=== PATIENT | male | born 1995 | race Caucasian/White ===

== ENCOUNTER 2024-06-01 10:46 | Emergency (ER) | payer OTHER ==
--- NOTE | 2024-06-01 11:06 | ERPHSYRPT ---
- History of Present Illness Source: patient Exam Limitations: no limitations Physician History: Patient had a scrape on his finger. It was scabbed over. It was quite a few days old. 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 I guess low blood got splashed on his area. He is just here for testing. The incident happened over 6 hours ago so he is out of the window for prophylactic medicines.He has no symptoms. That is his only complaint. Allergies/Adverse Reactions: No Known Drug Allergies Allergy (Verified 06/01/24 11:05) Home Medications: Buspirone HCl 5 mg [Buspar 5 mg] 5 mg PO TID PRN 06/01/24 [History] Escitalopram Oxalate [Lexapro] 20 mg PO DAILY 06/01/24 [History] - Review of Systems Constitutional: No Symptoms Musculoskeletal: No Symptoms Skin: No Symptoms All Other Systems: Reviewed and Negative - Physical Exam General Appearance: no apparent distress Eye Exam: PERRL/EOMI Respiratory Exam: normal breath sounds, No respiratory distress Cardiovascular Exam: regular rate/rhythm Neurologic Exam: alert, oriented x 3 - Course Nursing assessment & vital signs reviewed: Yes Ordered Tests: Active Orders 24 hr Category Date Time Status Wound Care STAT Care 06/01/24 11:00 Active - Progress Progress Note: 06/01/24 11:29 Patient was stable throughout stay. We roly the labs. I will let him go home and they can get the lab results by calling our lab for them. - Departure Departure Disposition: Home Clinical Impression: Exposure to blood or body fluid Condition: Stable Critical Care Time: No Instructions: Exposure to HIV or hepatitis through blood or body fluids Additional Instructions: Call us for the test results.
[2024-06-01 11:30] VITALS: BP 111/73; PULSE 72; RESP 17; TEMP 98.1; O2SAT 98
[2024-06-02 12:03] LABS: HBsAg Screen Negative (Negative); HIV Screen 4th Generation wRfx Non Reactive (Non Reactive); Hep B Surface Ab, Quant 39.6 mIU/mL (Immunity>10); Hep C Virus Ab Non Reactive (Non Reactive)
== END 2024-06-01 11:36 | disposition home or self-care (01) ==
LOC: ED 10:46
DX: Z77.21 Contact with and (suspected) exposure to potentially hazardous body fluids (principal); Z11.4 Encounter for screening for human immunodeficiency virus [HIV]; Z11.59 Encounter for screening for other viral diseases
CPT/HCPCS: 36415; 86317; 87340; 87389; 99283; G0472; 86803